=== PATIENT | female | born 1995 | race Caucasian/White ===

== ENCOUNTER 2017-04-09 15:33 | Emergency (ER) | payer OTHER ==
[2017-04-09 15:42] VITALS: BP 113/74; PULSE 72; TEMP 97.9; BMI 24.4
--- NOTE | 2017-04-09 15:44 | PDOC ---
Rapid Medical Evaluation Chief Complaint: Respiratory Time Seen by Provider: 04/09/17 15:43 Medical Evaluation: Allergies Allergy/AdvReac Type Severity Reaction Status Date / Time bismuth subsalicylate Allergy Verified 04/09/17 15:42 [From Pepto-Bismol] Vital Signs Temp Pulse Resp BP Pulse Ox 97.9 F 72 16 113/74 100 04/09/17 15:39 04/09/17 15:39 04/09/17 15:39 04/09/17 15:39 04/09/17 15:39 04/09/17 15:43 Pt c/o: fever cough x 3 weeks Pt on exam: lcta, vss Pt ordered for : none pt to proceed to the ED Discharge Disposition - Diagnosis Fever - Referrals - Patient Instructions - Post Discharge Activity
--- NOTE | 2017-04-09 17:27 | PDOC ---
History of Present Illness - General Chief Complaint: Respiratory Stated Complaint: COLD SYMPTOMS Time Seen by Provider: 04/09/17 15:43 History Source: Patient Exam Limitations: No Limitations - History of Present Illness Initial Comments: CHIEF COMPLAINT: 21 y/o afebrile female with flu like symptoms x 2 weeks. HISTORY OF PRESENT ILLNESS: The patient states she had fever and chills last week but that has resolved. She no longer has body aches but continues to have a dry cough. She denies earache, runny nose, n/v/d, CP, SOB, abd pain. Past History - Past Medical History Allergies/Adverse Reactions: Allergies Allergy/AdvReac Type Severity Reaction Status Date / Time bismuth subsalicylate Allergy Verified 04/09/17 15:42 [From Pepto-Bismol] Home Medications: Ambulatory Orders Metoclopramide HCl [Reglan] 10 mg PO BID PRN #10 tablet 12/07/14 Asthma: Yes COPD: No - Suicide/Smoking/Psychosocial Hx Smoking History: Never smoked Have you smoked in the past 12 months: No Hx Alcohol Use: No Drug/Substance Use Hx: No Substance Use Type: None Review of Systems - Review of Systems Able to Perform ROS?: Yes Constitutional: Yes: Chills (resolved), Fever (resolved) HEENTM: Yes: Throat Pain. No: Ear Pain, Ear Discharge, Nose Congestion, Nose Bleeding, Throat Swelling, Difficulty Swallowing Respiratory: Yes: Cough. No: Shortness of Breath, SOB with Exertion, Wheezing, Productive cough, Hemoptysis Cardiac (ROS): No: Symptoms Reported *Physical Exam - Vital Signs Last Vital Signs Temp Pulse Resp BP Pulse Ox 97.9 F 72 16 113/74 100 04/09/17 15:39 04/09/17 15:39 04/09/17 15:39 04/09/17 15:39 04/09/17 15:39 - Physical Exam Comments: very well appearing female with NAD or obvious discomfort with intermittent dry cough. General Appearance: Yes: Nourished, Appropriately Dressed. No: Apparent Distress HEENT: positive: EOMI, ASHLEY, Normal Voice, Pharyngeal Erythema. negative: Tonsillar Exudate, Tonsillar Erythema, Nasal Congestion, Rhinorrhea, Sinus Tenderness Respiratory/Chest: positive: Lungs Clear, Normal Breath Sounds. negative: Decreased Breath Sounds, Rales, Rhonchi, Wheezing Cardiovascular: positive: Regular Rhythm, Regular Rate Medical Decision Making - Medical Decision Making A/P: 21 y/o female with dry cough. Most likely at tail end of flu as now her mother has the flu. Plan is to discharge with supportive care instructions. Pt instructed to return to the ER with any worsening or concerning symptoms. The patient verbalizes understanding of all instructions, has no further questions and is awaiting discharge. *DC/Admit/Observation/Transfer Diagnosis at time of Disposition: Cough - Discharge Dispostion Disposition: HOME Condition at time of disposition: Good - Referrals Referrals: Ioana Roberson MD [Primary Care Provider] - - Patient Instructions Printed Discharge Instructions: DI for Cough -- Adult Additional Instructions: Discharge Instructions: -You had the flu -Alternate between 650mg of tylenol and 600mg of motrin every 6 hours for fever/ body aches if needed -Take robitussin if needed for cough -Drink lots of fluids -Get plenty of rest -REturn to the ER with any worsening or concerning symptoms. - Post Discharge Activity
== END 2017-04-09 17:35 | disposition home or self-care (01) ==
LOC: JERFT 15:33
DX: R05 Cough (principal)
CPT/HCPCS: 99281-25

== ENCOUNTER 2019-10-21 02:29 | Emergency (ER) | payer OTHER ==
--- NOTE | 2019-10-21 02:44 | PDOC ---
History of Present Illness - General Chief Complaint: Shortness of Breath Stated Complaint: DIFFICULTY BREATHING, SORE THROAT, CHEST PAIN Time Seen by Provider: 10/21/19 02:43 History Source: Patient Exam Limitations: No Limitations - History of Present Illness Initial Comments: 10/21/19 03:08 24yF w PMHx anxiety, PTSD presenting w 3d persistent SOB, midsternal chest pressure, sore throat, non productive cough, nausea, loss of smell. Takes tylenol intermittedly, last taken yesterday 6pm. Takes depo shot. Denies fever, vomiting, ABD pain, urinary/bowel mvmt changes. Past History - Medical History Allergies/Adverse Reactions: Allergies Allergy/AdvReac Type Severity Reaction Status Date / Time bismuth subsalicylate Allergy Verified 10/21/19 02:41 [From Pepto-Bismol] Home Medications: Ambulatory Orders Metoclopramide HCl [Reglan] 10 mg PO BID PRN #10 tablet 12/07/14 Ondansetron [Zofran *Odt*] 4 mg SL TID #10 od.tablet 10/21/19 Asthma: Yes COPD: No - Psycho-Social/Smoking History Smoking History: Never smoked Have you smoked in the past 12 months: No Review of Systems - Review of Systems Constitutional: No: Chills, Fever HEENTM: No: Eye Pain, Nose Congestion Respiratory: Yes: Cough, Shortness of Breath Cardiac (ROS): Yes: Chest Pain. No: Palpitations ABD/GI: Yes: Nausea. No: Constipated, Diarrhea, Vomiting : No: Burning, Dysuria Musculoskeletal: No: Back Pain, Joint Pain Integumentary: No: Bruising, Flushing Neurological: No: Headache, Seizure Psychiatric: No: Anxiety, Depression Endocrine: No: Intolerance to Cold, Intolerance to Heat Hematologic/Lymphatic: No: Anemia, Blood Clots *Physical Exam - Physical Exam General Appearance: Yes: Nourished, Appropriately Dressed, Mild Distress HEENT: positive: EOMI, ASHLEY, Normal Voice, Hearing Grossly Normal. negative: Scleral Icterus (R), Scleral Icterus (L), Pharyngeal Erythema, Tonsillar Exudate, Tonsillar Erythema Neck: positive: Lymphadenopathy (R), Lymphadenopathy (L) Respiratory/Chest: positive: Lungs Clear, Normal Breath Sounds. negative: Chest Tender, Respiratory Distress, Crackles, Rales, Rhonchi, Stridor, Wheezing Cardiovascular: positive: Regular Rhythm, Regular Rate, S1, S2. negative: Edema, Murmur Gastrointestinal/Abdominal: positive: Normal Bowel Sounds, Flat, Soft. negative: Tender, Organomegaly Extremity: negative: Pedal Edema Integumentary: positive: Normal Color, Dry, Warm Neurologic: positive: Fully Oriented, Alert, Normal Mood/Affect, Normal Response, Responsive ED Treatment Course - LABORATORY CBC & Chemistry Diagram: 10/21/19 03:36 10/21/19 03:36 Medical Decision Making - Medical Decision Making 10/21/19 04:37 EKG - NSR w sinus arrhythmia, HR 70, QTc 388, no ST changes CXR - clear lung lewis --- 24yF w PMHx anxiety, PTSD presenting w 3d persistent SOB, midsternal chest pressure, sore throat, non productive cough, nausea, loss of smell. Anxiety vs viral infection vs dehydration. No evidence of strep (neg) vs (neg) vs anemia (wnl) vs PE (d-dimer neg) vs PNA (clear lungs) Given zofran, 1L NS Pt refused covid swab, got swabbed at clinic yesterday DC home w PCP f/u, zofran Discharge - Discharge Information Problems reviewed: Yes Clinical Impression/Diagnosis: SOB (shortness of breath), Atypical chest pain Condition: Improved Disposition: HOME - Additional Discharge Information Prescriptions: Ondansetron [Zofran *Odt*] 4 mg SL TID #10 od.tablet - Follow up/Referral Referrals: Ioana Roberson MD [Primary Care Provider] - - Patient Discharge Instructions Patient Printed Discharge Instructions: DI for Atypical Chest Pain Additional Instructions: Your workup did not show anything concerning Drink lots of water Take tylenol or ibuprofen if you have pain Follow up with your primary care doctor - Post Discharge Activity
[2019-10-21 02:45] VITALS: BP 135/88; PULSE 85; TEMP 98.4; BMI 25.0
[2019-10-21] MEDS ORDERED: ONDANSETRON 4 MG/2 ML VIAL IVPUSH ONE (03:06)
[2019-10-21] MEDS ORDERED: SODIUM CHLORIDE 0.9% 500 ML INFUS.BAG IV ONE (03:06)
[2019-10-21 04:01] LABS: BASO % 0.7 % (0-2.0); EOS % 1.3 % (0-4.5); HEMATOCRIT 40.1 % (32.4-45.2); HEMOGLOBIN 13.5 GM/dL (10.7-15.3); LYMPH % 37.5 % (8-40); MCH 29.2 pg (25.7-33.7); MCHC 33.7 g/dl (32.0-36.0); MEAN CELL VOLUME 86.7 fl (80-96); MEAN PLT VOLUME 7.8 fl (7.5-11.1); MONO % 9.6 % (3.8-10.2); NEUT % 50.9 % (42.8-82.8); PLATELET COUNT 226 K/MM3 (134-434); RBC 4.63 M/mm3 (3.60-5.2); RDW 12.9 % (11.6-15.6)
[2019-10-21 04:09] LABS: INR 1.19 (0.83-1.09); PROTHROMBIN TIME (PATIENT) 14.1 SEC (9.7-13.0)
[2019-10-21 04:25] LABS: ALBUMIN 4.1 g/dl (3.4-5.0); BILIRUBIN,TOTAL 0.4 mg/dL (0.2-1); BLOOD UREA NITROGEN 9.7 mg/dL (7-18); CALCIUM 8.8 mg/dL (8.5-10.1); CREATININE 0.9 mg/dL (0.55-1.3); POTASSIUM 3.9 mmol/L (3.5-5.1); TOT PROT 7.9 g/dl (6.4-8.2)
--- NOTE | 2019-10-21 04:41 | PDOC ---
Attending Attestation - Resident Resident Name: Hiram Serrano - ED Attending Attestation I have performed the following: I have examined & evaluated the patient, The case was reviewed & discussed with the resident, I agree w/resident's findings & plan, Exceptions are as noted - HPI HPI: 10/21/19 06:45 See resident HPI - Physicial Exam PE: 10/21/19 06:45 Agree with documented exam - Medical Decision Making 10/21/19 06:46 CP, sob, loss of smell, unproductive cough, sore throat pna? viral syndrome? covid? consider pe f/u labs, cxr, d-dimer dispo per clinical course Discharge - Discharge Information Problems reviewed: Yes Clinical Impression/Diagnosis: SOB (shortness of breath), Atypical chest pain Condition: Improved Disposition: HOME - Additional Discharge Information Prescriptions: Ondansetron [Zofran *Odt*] 4 mg SL TID #10 od.tablet - Follow up/Referral Referrals: Ioana Roberson MD [Primary Care Provider] - - Patient Discharge Instructions Patient Printed Discharge Instructions: DI for Atypical Chest Pain Additional Instructions: Your workup did not show anything concerning Drink lots of water Take tylenol or ibuprofen if you have pain Follow up with your primary care doctor - Post Discharge Activity
--- NOTE | 2019-10-21 10:43 | EKG ---
Test Reason : Blood Pressure : / mmHG Vent. Rate : 070 BPM Atrial Rate : 070 BPM P-R Int : 162 ms QRS Dur : 084 ms QT Int : 360 ms P-R-T Axes : 060 069 035 degrees QTc Int : 388 ms NORMAL SINUS RHYTHM WITH SINUS ARRHYTHMIA NORMAL ECG WHEN COMPARED WITH ECG OF 06-DEC-2014 23:24, NO SIGNIFICANT CHANGE WAS FOUND Confirmed by SHIVANI PERALTA MD ([id number]) on 10/21/2019 10:43:21 AM Referred By: Confirmed By:SHIVANI PERALTA MD
== END 2019-10-21 06:18 | disposition home or self-care (01) ==
LOC: JER 02:29
PROC: 3E033NZ Introduction of Analgesics, Hypnotics, Sedatives into Peripheral Vein, Percutaneous Approach (ICD-10-PCS; principal; 2019-10-21)
DX: R06.02 Shortness of breath (principal)
CPT/HCPCS: 36415; 71045-TC-FY; 80053; 84703; 85025; 85379; 85610; 87070; 87880; 93005; 93010; 99285-25